=== PATIENT | male | born 1940 | race Caucasian/White ===

== ENCOUNTER 2018-08-19 06:17 | Day surgery (SDC) | payer MEDICARE, OTHER ==
[2018-08-19] MEDS ORDERED: LIDOCAINE 1% W/EPI 1:200,000 MPF 30ML SQ ONE (09:06)
--- NOTE | 2018-08-19 12:31 | Operative Note ---
DATE OF SURGERY: 08/19/2018 PREOPERATIVE DIAGNOSIS: Right carpal tunnel syndrome. POSTOPERATIVE DIAGNOSIS: Right carpal tunnel syndrome. OPERATION: Right carpal tunnel release. STAFF SURGEON: Jose German MD ANESTHESIA: Local. PREPARATION: Chloraprep. INDIVIDUAL CONSIDERATIONS: None. PROCEDURE: The patient was taken to the operating room and placed supine on the operating room table. His right arm was prepped and draped in the usual fashion. The volar wrist crease and area over the carpal tunnel volarly was infiltrated with 1% lidocaine with epinephrine. The limb was then elevated. Tourniquet was inflated to 250 mmHg. The patient had an incision over the longitudinal wrist crease volarly. It is just gently across the flexion crease to the 45-degree angle ulnarly. Sharp dissection carried down through skin and subcutaneous tissues. Sharp dissection carried down through the palmar fascia through the adductor brevis and then carefully through the transverse metacarpal fascia distally to the superficial arch and recurrent branch and proximally to the antebrachial fascia. The median nerve was obviously contused but there were no tumors present. Tourniquet was let down and hemostasis was obtained with compression. After irrigation, the skin was approximated with interrupted 4-0 nylon in a vertical mattress fashion. A sterile bulky compressive hand dressing was applied. The patient tolerated procedure well. Needle and sponge counts were correct. Estimated blood loss was minimal. He was taken back to recovery in good condition. There were no complications. DEANDRE
== END 2018-08-19 09:42 | disposition home or self-care (01) ==
LOC: SUR 06:17
PROVIDERS: ATTEND Orthopaedic Surgery
DX: G56.01 Carpal tunnel syndrome, right upper limb (principal)

== ENCOUNTER 2019-02-02 10:48 | Day surgery (SDC) | payer MEDICARE, OTHER ==
[~2019-02-02 10:48] MED LIST: CELECOXIB 100 MG CAPSULE PO ONE; FAMOTIDINE 20MG TABLET PO ONE; MECLIZINE 25 MG TABLET PO ONE; METOCLOPRAMIDE 10 MG TABLET PO ONE; VANCOMYCIN 1GM/200ML PREMIX 1 GM/200 ML PIGGYBACK IVPB ONE
[2019-02-02] MEDS ORDERED: ROPIVACAINE HCL (NAROPIN) /PF 5MG/ML 20ML VIAL IV ONE (10:49)
[2019-02-02] MEDS ORDERED: FENTANYL PF 100MCG/2ML VIAL IV ONE (10:49)
[2019-02-02] MEDS ORDERED: PROPOFOL 10 MG/ML VIAL IV ONE (10:49)
[2019-02-02] MEDS ORDERED: DEXAMETHASONE 4 MG/ML 1ML VIAL IVP ONE (10:49)
[2019-02-02] MEDS ORDERED: LIDOCAINE 2% MDV (20MG/ML) 20ML VIAL IV ONE (10:49)
[2019-02-02] MEDS ORDERED: MIDAZOLAM HCL 2MG/2ML VIAL IV ONE (10:49)
[2019-02-02 11:40] LABS: ABO GROUP A; ANTIBODY SCREEN NEGATIVE (NEGATIVE); RH TYPE NEGATIVE
[2019-02-02] MEDS ORDERED: DIPHENHYDRAMINE HCL 25 MG CAPSULE PO ONE (11:53)
[2019-02-02] MEDS: RINGERS SOLUTION,LACTATED 1,000 ML IV ONE (12:00)
[2019-02-02] MEDS ORDERED: GENTAMICIN SULFATE 560 MG in 0.9 % SODIUM CHLORIDE 100ML 100 ML IV ONE (14:00)
[2019-02-02] MEDS ORDERED: TRANEXAMIC ACID 1,000 MG/10 ML ML IV ONE (14:36)
[2019-02-02] MEDS ORDERED: TRANEXAMIC ACID 1,000 MG/10 ML ML IU ONE (14:36)
[2019-02-02] MEDS ORDERED: BUPIVACAINE 0.5% W/EPI MPF 30 ML VIAL SQ ONE (14:36)
[2019-02-02] MEDS ORDERED: AL HYDROX/MAG HYDROX 30ML UD PO PRN (15:50)
[2019-02-02] MEDS ORDERED: KETOROLAC 30 MG/ML VIAL IVP PRN (15:50)
[2019-02-02] MEDS ORDERED: BISACODYL 10 MG SUPP RC PRN (15:50)
[2019-02-02] MEDS ORDERED: ONDANSETRON HCL IV 4 MG/2 ML VIAL IVP PRN (15:50)
[2019-02-02] MEDS ORDERED: NALOXONE 0.4 MG/1 ML VIAL IVP PRN (15:50)
[2019-02-02] MEDS ORDERED: ACETAMINOPHEN W/ CODEINE 300MG/60MG TABLET PO PRN ×2 (15:50)
[2019-02-02] MEDS ORDERED: ZOLPIDEM TARTRATE 5 MG TABLET PO PRN (15:50)
[2019-02-02] MEDS ORDERED: TRAMADOL HCL 50 MG TABLET PO PRN (15:50)
[2019-02-02] MEDS ORDERED: ACETAMINOPHEN 325 MG TAB PO PRN (15:50)
[2019-02-02] MEDS ORDERED: HYDROMORPHONE HCL 2 MG/ML VIAL IM PRN (15:50)
[2019-02-02] MEDS ORDERED: MAGNESIUM HYDROXIDE 30 ML UDC PO PRN (15:50)
[2019-02-02] MEDS ORDERED: HYDROCODONE/APAP 10/325 TABLET PO PRN (15:50)
[2019-02-02] MEDS ORDERED: DIPHENHYDRAMINE HCL 25 MG CAPSULE PO PRN (15:50)
[2019-02-02] MEDS ORDERED: TRIAMCINOLONE ACET 0.1% CREAM 15G TUBE TOP PRN (16:20)
[2019-02-02] MEDS ORDERED: SIMVASTATIN 20 MG TABLET PO SCH (17:00)
[2019-02-02] MEDS: HYDROCODONE/APAP 10/325 TABLET PO PRN (19:29)
[2019-02-02] MEDS: POTASSIUM CHLORIDE/D5-0.9%NACL 20 MEQ/1,000 ML BAG IV SCH (20:58)
[2019-02-02] MEDS: DOCUSATE SODIUM 100 MG CAPSULE PO SCH (21:19)
[2019-02-02] MEDS: VANCOMYCIN 1GM/200ML PREMIX 1 GM/200 ML PIGGYBACK IVPB SCH (23:50)
[2019-02-03] MEDS: HYDROCODONE/APAP 10/325 TABLET PO PRN ×2 (06:22→10:16)
[2019-02-03] MEDS: POTASSIUM CHLORIDE/D5-0.9%NACL 20 MEQ/1,000 ML BAG IV SCH (06:24)
[2019-02-03 06:36] LABS: HEMATOCRIT 40.7 % (42.0-52.0); HEMOGLOBIN 13.3 gm/dl (14.0-18.0)
[2019-02-03 06:54] LABS: BLOOD UREA NITROGEN 28 mg/dL (8-23); EST GLOMERULAR FILTRATION RATE > 60 mL/min; GLUCOSE,RANDOM 130 mg/dL (74-109)
[2019-02-03] MEDS: DOCUSATE SODIUM 100 MG CAPSULE PO SCH (09:22)
[2019-02-03] MEDS ORDERED: RIVAROXABAN 10 MG TABLET PO SCH (10:00)
[2019-02-03] MEDS ORDERED: HYDROCHLOROTHIAZIDE 25MG PO SCH (10:00)
[2019-02-03] MEDS ORDERED: FERROUS SULFATE 325 MG TAB PO SCH (10:00)
[2019-02-03] MEDS ORDERED: ATENOLOL 25MG PO SCH (10:00)
--- NOTE | 2019-02-03 10:48 | Rehab Evaluation ---
Patient Information - Patient Information Diagnosis: L knee DJD Ordered Treatment: PT Evaluate and Treat Status: Initial Evaluation Surgery: Yes (L TKA) Date of Surgery: 02/02/19 Past Medical/Surgical Hx: PAST MEDICAL/SURGICAL HISTORY Surgery to Affected Area? No Recent Surgery? Past Surgical History RIGHT CTR PROSTATE SX LEFT KNEE SCOPE UMBILICAL HERNIA C SCOPES CATARACTS BILAT LASER SX VARICOSE VEINS PMH - Respiratory Hx Respiratory Disorders No PMH - Cardiovascular Hx Cardiovascular Disorders Yes Hx Hypertension Yes: ON MEDS WITH GOOD CONTROL Hx Vascular Disease Yes: LE VARICOSE VEINS Exercise Tolerance Good Comment: HYPERLIPIDEMIA PMH - Neuro Hx Neurological Disorders No PMH - GI Hx Gastrointestinal Disorders No PMH - Hx Genitourinary Disorders Yes Hx Prostate Problems Yes: CA HAD SX PMH - Endocrine Hx Endocrine Disorders No PMH - Musculoskeletal Hx Musculoskeletal Disorders Yes Hx Arthritis Yes: LEFT KNEE Hx Gout Yes: HX OF Comment: BILAT CTS PMH - Psych Hx Psychiatric Problems No PMH - Hematology/Oncology Hx Hematology/Oncology Yes Disorders Hx Cancer Yes: PROSTATE AND SKIN CA Premorbid Status: Detail (The patient was independent with all mobility prior to surgery.) Social History: Detail (The patient lives with spouse in an apartment with 12 steps and 2 handrails at the enterance. The bathroom is equipped with: walk in shower, grab bars(to be installed and a standard height toilet without grab bars. The patient has a front wheeled walker and standard cane.) Precautions: [place], Fall, Other (WBAT on the L LE) - Time With Patient Total Time Spent With Patient (Min): 30 Treatment Procedures: Detail (Initaila Evaluation, gait training) Subjective Information - Subjective Information Per Patient (The patient has complaints of level 5 pain using 0-10 pain scale in L knee.) Objective Data - Pain Pain Present: Yes Pain Intensity: 5 Pain Scale Used: Numeric (1 - 10) - Mental Status Patient Orientation: Oriented x3 - Visual Perception Appears within normal limits for therapeutic activities - ROM Not within normal limits (The patient's L knee AROM is limited s/p surgery. All other LE AROM is WNL.) - Strength/Tone Not within normal limits (The patient's LE strength was not tested s/p surgery however was functional.) - Bed Mobility Independent (The patient is independent with supine to and from sit transfer and scooting up in bed.) - Transfers Independent (The patient was independent with sit to and from stand transfer.) - Balance Balance Sitting: Good Balance Standing: Good - Gait Detail (The patient ambulated with front wheeled walker a distance of 130 feet x 1 WBAT on the L LE independently. The patient ambulated on 2 flights of stairs (total of 10) with use of folded walker and one railing using proper technique with supervision for safety.) Therapy Assessment - Therapy Assessment Detail (The patient is independent with all mobility and has met inpt. PT goals the patient is to receive Home PT.) Patient Education - Patient Education Teaching Topic: Exercise/Activity (The patient completed TKA HEP including: seated heel slides, gluteal sets, quad sets, hamstring sets, ankle pumps and SLR.) Response: Return Demonstration Teaching Method: Discussion, Demonstration, Handout Teaching Recipient: Patient Barriers To Learning: Age Related Problem List - Problem List Physical Therapy Problem List: Detail (Decreased L knee AROM and decreased LE strength.) Goals - Goals Physical Therapy Goals: The patient has met all inpt. PT goals. Prognosis - Prognosis Good Plan - Plan Physical Therapy Plan: The patient is discharged from inpt. PT and is to receive Home PT.
[2019-02-03] MEDS: VANCOMYCIN 1GM/200ML PREMIX 1 GM/200 ML PIGGYBACK IVPB SCH (11:17)
--- NOTE | 2019-02-03 12:30 | Operative Note ---
DATE OF SURGERY: 02/02/2019 PREOPERATIVE DIAGNOSIS: End-stage arthrosis of the left knee. POSTOPERATIVE DIAGNOSIS: End-stage arthrosis of the left knee. OPERATION: Cemented left total knee arthroplasty using Malagon [employer] Nephew components with a size 7 cobalt chrome Legion femur, a size 6 stemmed tibia baseplate, a 9 mm lipped tibial insert, and a 35 mm all-plastic patella. STAFF SURGEON: Jose German MD ANESTHESIA: Spinal. PREPARATION: Chloraprep. INDIVIDUAL CONSIDERATIONS: None. PROCEDURE: The patient was taken to the operating room, placed supine on the operating room table. He had a successful induction of a spinal anesthetic. The left lower extremity was prepped and draped in the usual fashion. The limb was elevated and tourniquet was inflated to 250 mmHg. The patient had a midline approach to the knee. Sharp dissection carried down through skin and subcutaneous tissue. Small veins were coagulated with a Bovie. A medial arthrotomy was performed. The patella was everted and the knee was flexed. The patient basically had a destroyed knee, pretty much exposed bone everywhere with bone loss in all 3 compartments with gigantic osteophytes especially medially. There was also what appeared to be gouty material with uric acid deposits. This was debrided out. The remaining fat pad was resected. There was no ACL. Provisional anterior meniscectomies were performed. The capsule was released from the medial proximal tibia. The initial femoral executive pilot hole was then made freehand. The intramedullary femoral cutting jig was placed. It was cut in 7.0 degrees of valgus and adjusted for rotation and secured with pins for a 10 mm resection. The initial transverse cut was then made. The skin guide was then placed in 3 degrees of external rotation and the executive pilot holes, the anterior and posterior cutting block were made. It was found that a size 7 would be appropriate. The anterior and posterior cuts followed by chamfer cuts were made. Osteophytes removed, and a size 7 trial was placed and found to fit well. The tibia was brought forward, and the remainder of the meniscal remnants removed with a Bovie. The extraarticular tibial cutting jig was placed. It was cut in neutral with a 3-degree AP slope. It was set for a 9 mm resection keyed off the high lateral side and secured with pins. When cutting the tibia, care was taken to preserve the remaining PCL. After removing gigantic osteophytes medially and some of them posteriorly were almost 2 cm thick, I was able to fit a size 6 baseplate trial. It was adjusted for rotation and secured with pins. With a size 9 trial insert and a femoral trial, there was excellent motion and stability. Ligamentous balance and rotation alignment even at this point were thought to be normal. Femoral executive pilot holes were impacted and tri-flange tibial keel stamp was impacted, and these trial components were removed. The patient had a thick patella and roughly 9 mm of bone was removed freehand. The 3 pilots holes were drilled for a 35 patella. The tourniquet was let down briefly to get bleeders posteriorly and then placed back up again. The knee was then thoroughly irrigated out with pulsatile Betadine and saline to remove any visual or palpable debris. Bony surfaces were then dried. A size 6 stemmed tibia baseplate was cemented into place followed by impaction of the 9 mm lipped tibial insert followed by cementing in the size 7 Legion cobalt chrome femur followed by cementing in the 35 mm patella. The implant surfaces were compressed, excess cement was removed. After the cement had set, there was excellent motion and stability. Ligamentous balance, rotation alignment, and patellofemoral tracking were normal. No lateral release was required. Again thorough irrigation with pulsatile Betadine and saline to remove any visual or palpable debris. Tourniquet was let down. Hemostasis was obtained with a Bovie. The capsule and periosteum were infiltrated with 30 mL of 0.5% Marcaine with epinephrine. The capsule was then closed with a running #2 quill, subcu was closed in layers with running 0 quill, skin was closed with brian. Then 1 g of tranexamic acid was mixed with 30 mL of saline and injected into the knee through a sterile 18-gauge needle, and a sterile bulky compressive HAKEEM-type dressing was applied. The patient tolerated the procedure well. Needle and sponge counts were correct. Estimated blood loss was about maybe 75-100 mL, and he was taken back to recovery in good condition. There were no complications. [facility]
--- NOTE | 2019-02-03 12:46 | Rehab Evaluation ---
Patient Information - Patient Information Diagnosis: L knee DJD Ordered Treatment: OT Evaluate and Treat Status: Initial Evaluation Surgery: Yes (L TKA) Date of Surgery: 02/02/19 Past Medical/Surgical Hx: PAST MEDICAL/SURGICAL HISTORY Surgery to Affected Area? No Recent Surgery? Past Surgical History RIGHT CTR PROSTATE SX LEFT KNEE SCOPE UMBILICAL HERNIA C SCOPES CATARACTS BILAT LASER SX VARICOSE VEINS PMH - Respiratory Hx Respiratory Disorders No PMH - Cardiovascular Hx Cardiovascular Disorders Yes Hx Hypertension Yes: ON MEDS WITH GOOD CONTROL Hx Vascular Disease Yes: LE VARICOSE VEINS Exercise Tolerance Good Comment: HYPERLIPIDEMIA PMH - Neuro Hx Neurological Disorders No PMH - GI Hx Gastrointestinal Disorders No PMH - Hx Genitourinary Disorders Yes Hx Prostate Problems Yes: CA HAD SX PMH - Endocrine Hx Endocrine Disorders No PMH - Musculoskeletal Hx Musculoskeletal Disorders Yes Hx Arthritis Yes: LEFT KNEE Hx Gout Yes: HX OF Comment: BILAT CTS PMH - Psych Hx Psychiatric Problems No PMH - Hematology/Oncology Hx Hematology/Oncology Yes Disorders Hx Cancer Yes: PROSTATE AND SKIN CA Premorbid Status: Detail (The patient was independent with all ADLs and fxl mobility prior to surgery.) Social History: Detail (The patient lives with spouse in an apartment with 12 steps and bilateral handrails at the entrance. The bathroom is equipped with a walk in shower, grab bars (to be installed, educated on safe location) and a standard height toilet without grab bars. The patient has a long handled brush that he uses in the shower, a front wheeled walker and standard cane. The Pt will be moving to a 1st floor fully accessible apt mid February.) Precautions: [place], Fall, Other (WBAT on the L LE) - Time With Patient Total Time Spent With Patient (Min): 30 (1 eval low, 1 ADL) Subjective Information - Subjective Information Per Patient (Pt supine in bed upon therapist arrival, agreeable to OT eval and Tx. Pt finished session upright in bedside chair w/ ice on knee and call light in reach.) Objective Data - Pain Pain Present: Yes Pain Scale Used: Numeric (1 - 10) (2/10 w/ mvmt) - Mental Status Patient Orientation: Oriented x3 - Visual Perception Appears within normal limits for therapeutic activities - ROM Within normal limits (B UEs) - Strength/Tone Within normal limits (B UEs) - Coordination Appears within normal limits for therapeutic activities - Bed Mobility Independent (supine > EOB) - Transfers Independent (sit-stand to FWW w/ good balance and safety awareness) - Balance Balance Sitting: Good Balance Standing: Good, Fair - Sensation Intact - Gait Detail (Fxl mobility within bedroom w/ FWW. Verbal instruction and demo for safe walker use and positioning over toilet and at sink-side and Pt demos good follow thru.) - ADL's/IADL's Detail (OT educated and demo'd modified technique for LB dressing and Pt demos good follow thru to don/doff underwear, pants, and socks. Pt reports will assist w/ tedhose at DC and therapist educates on tech's to increase success and wearing schedule, Pt verbalizes understanding. Educ. Pt on benefits of shower chair and where to obtain as well as where to place shower suction GBs for sa fety (on full tile/fiberglass surround vs. grout lines). Pt demos SOB while don/doff socks and pants as well as during fxl mobility, SpO2 dropped to 89% w/ 20 sec recover to 92% w/ therapist instructed pursed lip breathing. Educated Pt on energy conservation techs and breathing to decrease SOB and risk for overexertion.) Therapy Assessment - Therapy Assessment Detail (Pt tolerates session well w/ some SOB during activity - see ADL section. Demos MOD I and good safety awareness w/ ADLs and fxl TFs. Pt appears ready for home DC w/ assist as needed when medically ready.) Patient Education - Patient Education Teaching Topic: Other (modified techs for LB dressing, home mods, breathing and energy conservation techs, safety w/ walker use) Response: Return Demonstration, Verbalize Understanding Teaching Method: Discussion, Demonstration Teaching Recipient: Patient Barriers To Learning: None Problem List - Problem List Physical Therapy Problem List: Detail (Decreased L knee AROM and decreased LE strength.) Occupational Therapy Problem List: Detail (No further IP OT needs identified.) Goals - Goals Physical Therapy Goals: The patient has met all inpt. PT goals. Occupational Therapy Goals: No further skilled IP OT needs/goals identified. Prognosis - Prognosis Good Plan - Plan Physical Therapy Plan: The patient is discharged from inpt. PT and is to receive Home PT. Occupational Therapy Plan: No further skilled IP OT needs identified, DC OT services. Thank you for this referral.
[2019-02-03] MEDS ORDERED: LOVASTATIN 40MG PO SCH (17:00)
== END 2019-02-03 13:00 | disposition home or self-care (01) ==
LOC: SUR 10:48 → MEDSURG 16:48 → SUR 02-03 13:00
PROVIDERS: ATTEND Orthopaedic Surgery
DX: M17.12 Unilateral primary osteoarthritis, left knee (principal); I10 Essential (primary) hypertension; E78.00 Pure hypercholesterolemia, unspecified; M10.9 Gout, unspecified
CPT/HCPCS: 76942; 80048; 85014; 85018; 86850; 86900; 86901; C1776; J1580; J1885; J3370; J3480; J7120